=== PATIENT | female | born 1985 | race Caucasian/White ===

== ENCOUNTER 2017-04-24 10:20 | Inpatient (IN) | payer OTHER ==
[2017-04-24] MEDS ORDERED: RINGERS SOLUTION,LACTATED 1,000 ML IV PRN (11:25)
[2017-04-24 11:42] LABS: APPEARANCE,URINE CLEAR; BILIRUBIN,URINE NEGATIVE (NEGATIVE); GLUCOSE, URINE NEGATIVE (NEGATIVE); KETONES,URINE NEGATIVE (NEGATIVE); LEUKOCYTE ESTERASE,URINE MODERATE (NEGATIVE); NITRITE,URINE NEGATIVE (NEGATIVE); PROTEIN,URINE NEGATIVE (NEGATIVE); URINE SPECIFIC GRAVITY 1.005; UROBILINOGEN,URINE NEGATIVE mg/dL (<2.0)
[2017-04-24 11:52] LABS: ABSOLUTE LYMPHOCYTES (AUTO) 1.5 10^3/uL (0.5-4.7); ABSOLUTE MONOCYTES (AUTO) 0.5 10^3/uL (0.1-1.4); ABSOLUTE NEUT (AUTO) 4.4 10^3/uL (1.7-8.2); BASOPHILS % (AUTO) 0.3 % (0-2); EOSINOPHILS % (AUTO) 0.4 % (0-6); HEMATOCRIT 35.8 % (36.0-47.0); HEMOGLOBIN 12.1 g/dL (12.0-15.5); HGB HCT DIFFERENCE 0.5; LYMPHOCYTES % (AUTO) 23.8 % (13-45); MEAN CORPUSCULAR HEMOGLOBIN 29.6 pg (27.0-33.4); MEAN CORPUSCULAR HGB CONC 33.8 g/dL (32.0-36.0); MEAN CORPUSCULAR VOLUME 88 fl (80-97); MONOCYTES % (AUTO) 7.3 % (3-13); RED BLOOD COUNT 4.08 10^6/uL (3.72-5.28); RED CELL DISTRIBUTION WIDTH 13.9 % (11.5-14.0); SEGMENTED NEUTROPHILS % (AUTO) 68.2 % (42-78); WHITE BLOOD COUNT 6.5 10^3/uL (4.0-10.5)
[2017-04-24] MEDS ORDERED: FENTANYL/BUPIVACAINE/NS/PF 0 MCG/0 ML RTUINJ EPI ONE (11:52)
[2017-04-24] MEDS ORDERED: EPHEDRINE SULFATE INJ 50 MG/1 ML AMPULE ONE ×2 (11:52→13:29)
[2017-04-24] MEDS ORDERED: OXYTOCIN/NORMAL SALINE 20 UNIT/1,000 ML RTUINJ ONE (11:53)
[2017-04-24] MEDS ORDERED: LIDOCAINE 1% INJ-PF (10 MG/ML) 30 ML SDV ONE (11:53)
[2017-04-24] MEDS ORDERED: MISOPROSTOL 0.2 MG TABLET ONE (11:53)
[2017-04-24] MEDS ORDERED: BUPIVACAINE HCL 0.25 % INJ/PF (2.5 MG/1 ML) 30 ML VIAL ONE ×2 (11:53→13:30)
[2017-04-24 12:14] LABS: URINE BARBITURATES SCREEN NEGATIVE; URINE METHADONE SCREEN NEGATIVE; URINE OPIATES LOW NEGATIVE; URINE PHENCYCLIDINE SCREEN NEGATIVE
[2017-04-24] MEDS ORDERED: BENZOCAINE/MENTHOL AEROSOL SPRAY 56 ML TOP PRN (13:01)
[2017-04-24] MEDS ORDERED: DIPH/PERTUSS(ACELL)/TETANUS VAC/PF 0.5 ML SYR (>=10YO) IM PRN (13:01)
[2017-04-24] MEDS ORDERED: OXYTOCIN/NORMAL SALINE 1,000 ML IV PRN (13:01)
[2017-04-24] MEDS ORDERED: MEASLES,MUMPS&RUBELLA VACC/PF 0.5 ML VIAL SUBCUT PRN (13:01)
[2017-04-24] MEDS ORDERED: ACETAMINOPHEN WITH CODEINE #3 TABLET PO PRN ×2 (13:01)
[2017-04-24] MEDS ORDERED: DIBUCAINE 1% OINTMENT 28 GM TP PRN (13:01)
[2017-04-24] MEDS ORDERED: ZOLPIDEM TARTRATE 5 MG TABLET PO PRN (13:01)
[2017-04-24] MEDS ORDERED: FENTANYL/BUPIVACAINE/NS/PF 200 MCG/100 ML RTUINJ EPI ONE (13:30)
--- NOTE | 2017-04-24 15:34 | Admission Physical ---
Datetime Report Generated by CPN: 04/24/2017 15:34 CURRENT ADMISSION Hx Assessment: The History has been Reviewed and is Current Chief Complaint: Uterine Contractions Indication for Induction: Not Applicable Admit Plan: Admit to Unit; Initiate Labor Induction Protocol ALLERGIES Medication Allergies: Yes Medication Allergies: levetiracetam (01/14/2016) Medication Allergies: levetiracetam (01/14/2016) Keppra Latex: No Latex Allergies Food Allergies: none Environmental Allergies: none OBSTETRICAL HISTORY EDC: 04/29/2017 00:00 : 4 Para: 3 Term: 3 Livin Cesareans: 0 Gestational Diabetes: No Rh Sensitization: No Incompetent Cervix: No MARGUERITE: No Infertility: No ART Treatment: No Uterine Anomaly: No IUGR: No Hx Previous C/S: No Macrosomia: No Hx Loss/Stillborn: No PIH: No Hx : No Placenta Previa/Abruption: No Depression/PP Depression: Yes PTL/PROM: No Post Hemorrhage: No Obstetrical History Comments: G1: 06/26/2010: 40 weeks, F, , Epidural, 7#5oz G2: 10/16/2013: 40 weeks, F, , local, 7#9oz G3: 01/20/2016: 40.2 weeks, F, , Epidural, 8#0oz G4: SEE RECORDS Alcohol: No Marijuana : No Cocaine: No Other Illicit Drugs: No Cigarettes: Former Smoker. 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, abdnormal pap, colpo PPD x2, no meds INFECTIOUS HISTORY Gonorrhea: No Genital Herpes: No Chlamydia: No Tuberculosis: No Syphilis: No Hepatitis: No HIV/AIDS Exposure: No Rash or Viral Illness: No HPV: Yes PHYSICAL EXAM General: Normal HEENT: Normal Neurologic: Normal Thyroid: Deferred Heart: Normal Lungs: Normal Breast: Deferred Back: Normal Abdomen: Normal Genitourinary Exam: Normal Extremities: Normal DTRs: Normal Pelvic Type: Adequate Physical Exam Comments: pelvis proven to 8 lbs Vital Signs: Reviewed VAGINAL EXAM Dilatation: 7 Effacement: 100 Contraction Comments: every 2 min MEMBRANES Membranes: Intact FETUS A EGA: 39.2 Monitoring: External US FHR- Baseline: 135 Variability: Moderate 6-25bpm Accelerations: 15X15 Decelerations: None FHR Category: Category I Presentation: Vertex Admit Comment: Ctx every few mintues, desires epidural, denies bleeding, or leaking of fluid. States active baby. Hx: TBI in 2006, with syncope and seizures, sees dr. Tobias, fell 40 feet Allergy to Keppra Hx abn pap Surgical hx: left finger X2 GBS negative Admit to L _ D IV fluids, admission labs. May have epidural. Anticipate PLANS FOR LABOR AND DELIVERY Labor and Delivery: None Pain Management: Epidural Feeding Preference: Breast Benefit of Breast Feed Discussed: Yes Circumcision: Yes INFORMED CONSENT Assignment: Haritha Costa MD Signature: with User ID: Juan Daniel : with User ID: Juan [email or web address]
[2017-04-24] MEDS: FERROUS SULFATE 325 MG TABLET PO SCH (17:33)
[2017-04-24] MEDS: DOCUSATE SODIUM 100 MG CAPSULE PO SCH (17:33)
[2017-04-24] MEDS: IBUPROFEN 800 MG TABLET PO SCH ×2 (17:36→21:08)
[2017-04-25] MEDS: IBUPROFEN 800 MG TABLET PO SCH ×3 (05:05→21:10)
[2017-04-25 07:41] LABS: HEMATOCRIT 34.2 % (36.0-47.0); HEMOGLOBIN 11.8 g/dL (12.0-15.5); HGB HCT DIFFERENCE 1.2; MEAN CORPUSCULAR HEMOGLOBIN 29.4 pg (27.0-33.4); MEAN CORPUSCULAR HGB CONC 34.4 g/dL (32.0-36.0); MEAN CORPUSCULAR VOLUME 86 fl (80-97); RED CELL DISTRIBUTION WIDTH 13.8 % (11.5-14.0); WHITE BLOOD COUNT 9.2 10^3/uL (4.0-10.5)
--- NOTE | 2017-04-25 09:32 | Delivery Summary ---
Del Sum A-C Datetime Report Generated by CPN: 04/25/2017 09:32 DELIVERY PERSONNEL DELIVERY PERSONNEL: [phone] Delivery Doctor:: Greer Moreno CNM Nurse Painter Foreman Certified:: Greer Moreno CNM Anesthesiologist:: Aleksey Mann MD Labor and Delivery Nurse:: David Jaimes RNsafety officer Nurse:: TESHA Hall Expediter Service Order:: TESHA So Load Builder/CONTINUING EDUCATION SPECIALIST: Yuli Murdock, CONTINUING EDUCATION SPECIALIST II MATERNAL INFORMATION Delivery Anesthesia: Epidural Medications After Delivery: Pitocin Bolus-Please Comment; Pitocin Drip 20 Units/1000ml NSS Estimated Blood Loss (ml): 250 Maternal Complications: None Provider Comments: of viable male infant over intact perienum, head delivered without difficulty, loose nuchal noted, reduced, shoulders and body delivered without difficulty, with spontaneous cry and respirations, to maternal abdomen, cord clamped X2 after 2 min delay, spontaneous delivery of placenta via telles mechanism, appears intact, 3 VC. Hemostasis achieved with external fundal massage and IV pitocin. No lacerations noted, mother and in stable condition, routine pp care. LABOR SUMMARY EDC: 04/29/2017 00:00 No. Babies in Womb: 1 Attempted: No Labor Anesthesia: Epidural LABOR INFORMATION Reason for Induction: Not Applicable Complete Dilatation: 04/24/2017 12:36 Oxytocin: N/A Group B Beta Strep: Negative Steroids Given: None Reason Steroids Not Administered: Not Applicable MEMBRANES Membranes Rupture Method: Artificial Membranes Rupture Method: Artificial Rupture of Membranes: 04/24/2017 12:36 Length of Rupture (hr): 0.08 Amniotic Fluid Color: Heavy Meconium Amniotic Fluid Color: Moderate Meconium Amniotic Fluid Amount: Moderate Amniotic Fluid Amount: Moderate STAGES OF LABOR Stage 2 hr: 0 Stage 2 min: 5 Stage 3 hr: 0 Stage 3 min: 4 VAGINAL DELIVERY Episiotomy: None Laceration Extension: N/A Laceration Type: None Laceration Repair: Not Applicable Laceration Repair Note: n/a Sponge Count Correct: N/A Sharps Count Correct: N/A CSECTION DELIVERY Primary Indication: N/A Secondary Indication: N/A CSection Incidence: N/A Labor: N/A Elective: N/A CSection Incision: N/A BABY A INFORMATION Infant Delivery Date/Time: 04/24/2017 12:41 Method of Delivery: Vaginal Born in Route : No : N/A Forceps: N/A Vacuum Extraction: N/A Shoulder Dystocia : No PRESENTATION/POSITION BABY A Presentation: Cephalic Cephalic Presentation: Vertex Vertex Position: Right Occipital Anterior Breech Presentation: N/A PLACENTA INFORMATION BABY A Placenta Delivery Time : 04/24/2017 12:45 Placenta Method of Delivery: Spontaneous Placenta Status: Delivered SCORES BABY A Heart Rate 1 min: >100 bpm Resp Effort 1 min: Good Cry Reflex Irritability 1 min: Cough or Sneeze or Pulls Away Muscle Tone 1 min: Active Motion Color 1 min: Blue/Pale Resuscitation Effort 1 min: Tactile Stimulation SCORE 1 MIN: 8 Heart Rate 5 min: >100 bpm Resp Effort 5 min: Good Cry Reflex Irritability 5 min: Cough or Sneeze or Pulls Away Muscle Tone 5 min: Active Motion Color 5 min: Body Unity, Extremities Blue Resuscitation Effort 5 min: N/A SCORE 5 MIN: 9 INFORMATION BABY A Gestational Age at Delivery: 39.2 Gestational Status: Full Term- 39- 40.6 Weeks Infant Outcome : Liveborn Condition : Stable Infant Sex: Male IDENTIFICATION BABY A Infant Verification Date/Time: 04/24/2017 13:05 ID Band Number: [id number] Mother's Name Verified: Yes RN Verifying : K Baldo RNC/C Jaimes RN WEIGHT/LENGTH BABY A Infant Birthweight (gm): 3855 Infant Weight (lb): 8 Weight (oz): 8 Length (in): 19.75 Infant Length (cm): 50.17 CORD INFORMATION BABY A No. Cord Vessels: 3 Nuchal Cord : Around Neck x1, Loose Cord Blood Taken: Yes-For Storage (Mom's Blood type +) Suction: Mouth; Nose ASSESSMENT BABY A Complications: Meconium Physical Findings at Delivery: Within Normal Limits Infant Respirations: Appears Normal Skin to Skin: Yes Skin to Skin Time (min): 60 (Annotations: Data stored by N on behalf of user) Head Usher/ALS Called : No Infant Care By: Sherrie Will [facility] Transferred To: Remains with Mother BABY B INFORMATION : N/A SIGNATURES Assignment: Haritha Costa MD Signature: with User ID: Juan Daniel : with User ID: Juan Daniel
[2017-04-25] MEDS: PRENATAL VITAMIN W-O CA NO5/FE FUMARATE/FA CAPSULE PO SCH (09:34)
[2017-04-25] MEDS: FERROUS SULFATE 325 MG TABLET PO SCH ×2 (09:34→17:30)
[2017-04-25] MEDS: SENNOSIDES/DOCUSATE 8.6-50 MG 1 EACH TABLET PO SCH (09:34)
[2017-04-25] MEDS: DOCUSATE SODIUM 100 MG CAPSULE PO SCH ×2 (09:34→17:30)
--- NOTE | 2017-04-25 12:27 | PDOC PROGRESS REPORT ---
Subjective-OB Subjective: Post Delivery Day:1 32 year old G4 now P4 s/p ppd1. Ambulating, voiding and without difficulty. Denies any needs at this time. Physical Exam (OB) Vital Signs: Temp Pulse Resp BP Pulse Ox 98.1 F 51 L 16 107/51 L 91 L 04/25/17 08:15 04/25/17 08:15 04/25/17 08:15 04/25/17 08:15 04/25/17 08:15 - General General Appearance: Appears well In distress: None - PIH/Pre-Eclampsia Headache: Absent - Episiotomy/Laceration Site Condition: N/A - Lochia Lochia Amount: Scant < 10 ml Lochia Color: Rubra/Red - Abdomen Description: Soft, Round Hernia Present: No Fundal Description: Firm, Midline Fundal Height: u/u - u/2 - Respiratory Respiratory Status: No respiratory distress - Extremities Upper extremity: Normal inspection Lower extremities: Normal inspection - Neurological Cognition: Normal Orientation: AAOx4 - Psychological Associated symptoms: Normal affect, Normal mood Objective-Diagnostic Laboratory: 04/25/17 06:55 04/24/17 04/24/17 04/24/17 10:29 11:30 11:30 WBC 6.5 RBC 4.08 Hgb 12.1 Hct 35.8 L MCV 88 MCH 29.6 MCHC 33.8 RDW 13.9 Plt Count 160 Seg Neutrophils % 68.2 Lymphocytes % 23.8 Monocytes % 7.3 Eosinophils % 0.4 Basophils % 0.3 Absolute Neutrophils 4.4 Absolute Lymphocytes 1.5 Absolute Monocytes 0.5 Absolute Eosinophils 0.0 Absolute Basophils 0.0 Urine Color YELLOW Urine Appearance CLEAR Urine pH 7.0 Ur Specific Orange 1.005 Urine Protein NEGATIVE Urine Glucose (UA) NEGATIVE Urine Ketones NEGATIVE Urine Blood NEGATIVE Urine Nitrite NEGATIVE Ur Leukocyte Esterase MODERATE H Blood Type A POSITIVE Antibody Screen NEGATIVE 04/25/17 06:55 WBC 9.2 RBC 4.00 Hgb 11.8 L Hct 34.2 L MCV 86 MCH 29.4 MCHC 34.4 RDW 13.8 Plt Count 159 Seg Neutrophils % Lymphocytes % Monocytes % Eosinophils % Basophils % Absolute Neutrophils Absolute Lymphocytes Absolute Monocytes Absolute Eosinophils Absolute Basophils Urine Color Urine Appearance Urine pH Ur Specific Orange Urine Protein Urine Glucose (UA) Urine Ketones Urine Blood Urine Nitrite Ur Leukocyte Esterase Blood Type Antibody Screen Assessment and Plan(PN) - Assessment and Plan (1) Qualifiers: Weeks of gestation: 39 weeks Qualified Code(s): Z3A.39 - 39 weeks gestation of Is this a current diagnosis for this admission?: YesPlan: delivered (2) Delivery normal Is this a current diagnosis for this admission?: YesPlan: continue stay (3) History of depression Is this a current diagnosis for this admission?: YesPlan: continue stay, monitor for s/s of ppd (4) Personal history of traumatic brain injury Is this a current diagnosis for this admission?: YesPlan: continue stay - Time Spent with Patient Time with patient: 15-25 minutes Medications reviewed and adjusted accordingly: Yes - Disposition Anticipated Discharge: Home Within: within 24 hours
[2017-04-26] MEDS: IBUPROFEN 800 MG TABLET PO SCH ×2 (05:37→13:00)
[2017-04-26] MEDS: DOCUSATE SODIUM 100 MG CAPSULE PO SCH (09:24)
[2017-04-26] MEDS: PRENATAL VITAMIN W-O CA NO5/FE FUMARATE/FA CAPSULE PO SCH (09:24)
[2017-04-26] MEDS: FERROUS SULFATE 325 MG TABLET PO SCH (09:24)
[2017-04-26] MEDS: SENNOSIDES/DOCUSATE 8.6-50 MG 1 EACH TABLET PO SCH (09:25)
--- NOTE | 2017-04-26 10:10 | PDOC PROGRESS REPORT ---
Subjective-OB Subjective: Post Delivery Day: 32 year old. Denies any needs at this time. Ready to go home. Physical Exam (OB) Vital Signs: Temp Pulse Resp BP Pulse Ox 97.3 F 60 17 115/68 99 04/25/17 19:48 04/25/17 19:48 04/25/17 19:48 04/25/17 19:48 04/25/17 19:48 Intake & Output 04/25/17 04/26/17 04/27/17 06:59 06:59 06:59 Intake Total 650 Balance 650 - PIH/Pre-Eclampsia Headache: Absent - Lochia Lochia Amount: Scant < 10 ml Lochia Color: Rubra/Red - Abdomen Description: Soft, Round Hernia Present: No Bowel Sounds: Normoactive Flatus Presence: Present Stool: Yes Fundal Description: Firm, Midline Fundal Height: u/u - u/2 Objective-Diagnostic Laboratory: 04/25/17 06:55 Assessment and Plan(PN) - Time Spent with Patient Medications reviewed and adjusted accordingly: Yes - Disposition Anticipated Discharge: Home
--- NOTE | 2017-04-26 10:15 | PDOC DISCHARGE SUMMARY ---
Final Diagnosis Discharge Date: 04/26/17 - Final Diagnosis (1) Syncope Is this a current diagnosis for this admission?: Yes (2) Delivery normal Is this a current diagnosis for this admission?: Yes (3) History of depression Is this a current diagnosis for this admission?: Yes (4) Personal history of traumatic brain injury Is this a current diagnosis for this admission?: Yes (5) Positive GBS test Is this a current diagnosis for this admission?: Yes (6) Is this a current diagnosis for this admission?: Yes Discharge Data - Discharge Medication Home Medications: Vit/Iron Fumarate/FA [ Tablet] 1 tab PO DAILY 01/14/16 Gestational Age: 39.2 wks Reason(s) for Admission: Onset of Labor Procedures: Ultrasound Intrapartum Procedure(s): Spontaneous Vaginal Delivery - Data Baby 1 Male at 1 minute: 8 at 5 minutes: 9 Weight: 3.856 kg Home with Mother: Yes Complications: No - Diagnosis Test Laboratory: Temp Pulse Resp BP Pulse Ox 97.3 F 60 17 115/68 99 04/25/17 19:48 04/25/17 19:48 04/25/17 19:48 04/25/17 19:48 04/25/17 19:48 04/24/17 04/24/17 04/25/17 10:29 11:30 06:55 RBC 4.08 4.00 Hgb 12.1 11.8 L Hct 35.8 L 34.2 L Urine Opiates Screen NEGATIVE - Discharge information/Instructions Discharge Activity: Activity As Tolerated, Balance Activity w/Rest, Pelvic Rest , Slowly Increase Activity, No tub bath Discharge Diet: Regular Disposition: HOME, SELF-CARE Follow [facility]: [facility] in: 4, Weeks
[2017-04-26 12:42] VITALS: BP 116/57
== END 2017-04-26 13:15 | disposition home or self-care (01) | DRG 775 ==
LOC: LC 10:20 → LR 11:15 → 2S 15:32
PROVIDERS: ADMIT Specialist; ATTEND Specialist
PROC: 10E0XZZ Delivery of Products of Conception, External Approach (ICD-10-PCS; principal; 2017-04-24)
PROC: 10907ZC Drainage of Amniotic Fluid, Therapeutic from Products of Conception, Via Natural or Artificial Opening (ICD-10-PCS; 2017-04-24)
PROC: 4A1HXCZ Monitoring of Products of Conception, Cardiac Rate, External Approach (ICD-10-PCS; 2017-04-24)
PROC: 3E0234Z Introduction of Serum, Toxoid and Vaccine into Muscle, Percutaneous Approach (ICD-10-PCS; 2017-04-26)
DX: O99.824 Streptococcus B carrier state complicating childbirth (principal); O69.81X0 Labor and delivery complicated by cord around neck, without compression, not applicable or unspecified; O77.0 Labor and delivery complicated by meconium in amniotic fluid; Z87.891 Personal history of nicotine dependence; Z23 Encounter for immunization; Z87.820 Personal history of traumatic brain injury; Z88.8 Allergy status to other drugs, medicaments and biological substances; Z85.89 Personal history of malignant neoplasm of other organs and systems; Z3A.39 39 weeks gestation of pregnancy; Z37.0 Single live birth
CPT/HCPCS: 36415; 80307; 81005; 85025; 85027; 86592; 86850; 86900; 86901; 90715; 94760; J2590; J3490